=== PATIENT | female | born 1975 | race Caucasian/White ===

== ENCOUNTER → 2017-10-30 | Outpatient (CLI) | payer OTHER ==
[~2017-10-30] MED LIST: AUG875 PO; FISH OIL1 CAP PO; IBU800 PO; LORA-1105 PO; MULT1TAB64 PO; OLOOD OS
[2017-10-30 08:42] LABS: PLATELET COUNT, AUTOMATED 219 K/uL (150-450)
[2017-10-30 09:59] LABS: LDL CHOLESTEROL 118 mg/dl
== END ==
LOC: LAB 08:15
PROVIDERS: ATTEND Nurse Practitioner Psychiatric/Mental Health
DX: Z00.00 Encounter for general adult medical examination without abnormal findings (principal)
CPT/HCPCS: 36415; 82040; 82247; 82310; 82374; 82435; 82465; 82565; 82947; 83718; 84075; 84132; 84155; 84295; 84443; 84450; 84460; 84478; 84520; 85025

== ENCOUNTER 2018-01-22 18:37 | Emergency (ER) | payer OTHER ==
[2018-01-22] MEDS ORDERED: ESCI20TA38 PO (18:44)
--- NOTE | 2018-01-22 18:52 | ER Report ---
History and Physical Time Seen By MD: 18:52 Hx. of Stated Complaint: JAW OUT OF PLACE AFTER YAWNING, ABOUT 4:30 TONIGHT HPI/ROS CHIEF COMPLAINT: Jaw pain HISTORY OF PRESENT ILLNESS: This is a 42-year-old female who presents to the emergency department for left-sided jaw pain. Patient states that this evening while eating she developed some sudden left-sided jaw pain, the jaw and teeth were misaligned, she was unable to eat. Patient is able to open her mouth, does cause some discomfort to the left side of her mandible. No obvious deformities. Patient states this is happened in the past however she has been able to yawn and "it slides back into place on it's own". No recent fevers, aches, chills, nausea or vomiting. REVIEW OF SYSTEMS: Respiratory: No cough, no dyspnea. Cardiovascular: No chest pain, no palpitations. Gastrointestinal: No vomiting, no abdominal pain. Musculoskeletal: As above. Allergies: Coded Allergies: No Known Drug Allergies (Verified , 01/22/18) Home Meds Reported Medications Escitalopram Oxalate (LEXAPRO) 20 Mg Tablet, 10 MG PO QDAY, TAB 01/22/18 Multivitamin (MULTI VITAMIN DAILY) 1 Each Tablet, 1 EACH PO 11/25/12 Loratadine (CLARITIN (OR EQUIV)) 10 Mg Tab, 10 MG PO 11/25/12 Discontinued Reported Medications Amoxicillin/Clavulanate K (Augmentin) 875 Mg Tab, 875 MG PO BIDBS, #10 11/25/12 [place]-3 Fatty Acids (Fish Oil) 1 Cap Capsule, 1 CAP PO 11/25/12 Discontinued Scripts Olopatadine (PATANOL) 5 Ml Soln, 1 DROP OS Q6H for eye irritation, #1 BOTTLE 0 Refills Prov:LISHA DORAN MD 03/01/17 Past Medical/Surgical History The patient has a past medical and surgical history of asthma, hospitalization for childbirth and a Bite, left knee surgery. Reviewed Nurses Notes: Yes Hx Smoking: No Hx Substance Use Disorder: No Hx Alcohol Use: No Constitutional Vital Sign - Last 24 Hours 01/22/18 18:41 Temp 98.7 Pulse 87 Resp 14 B/P (MAP) 111/97 Pulse Ox 96 O2 Delivery Room Air Physical Exam General Appearance: The patient is alert, has no immediate need for airway protection and no current signs of toxicity. Eyes: Pupils equal and round no injection. Mandible: There is a palpable offset or misalignment to the left mandible. No crepitus. Mandible follow up: No misalignment on the reevaluation. No crepitus. Respiratory: Chest is non tender, lungs are clear to auscultation. Cardiac: regular rate and rhythm. Gastrointestinal: Abdomen is soft and non tender, no masses, bowel sounds normal. Musculoskeletal: Neck: Neck is supple and non tender. Extremities have full range of motion and are non tender. Skin: No rashes or lesions. DIFFERENTIAL DIAGNOSIS: After history and physical exam differential diagnosis was considered for mandibular dislocation. Medical Decision Making EKG/Imaging Imaging Location: [facility] Patient: Aparna Saez : 1975 Visit/Account:[id number] Date of Sevice: 01/22/2018 EXAMINATION: 5 views of the mandible HISTORY: Left-sided pain. Query dislocation. COMPARISON: None. FINDINGS: The mandible appears radiographically intact. No visualized mandibular fracture. Alignment at the temporomandibular joints appears to be symmetric and within normal limits. Remainder of the visualized facial bones appear radiographically intact. The paranasal sinuses are unopacified. IMPRESSION: Unremarkable mandible series. No visualized fracture or dislocation. If there is persistent clinical concern for acute osseous pathology , follow-up CT would be more sensitive for further evaluation. Report Dictated By: Dax Charles MD at 01/22/2018 7:56 PM Report E-Signed By: Dax Charles MD at 01/22/2018 7:58 PM WSN:[id number] ED Course/Re-evaluation ED Course The patient was admitted to room. History and physical were obtained. Differential diagnoses were considered. A mandible x-ray was obtained which was negative for any obvious dislocation or fracture. My physical exam did support some malalignment of the left mandible, I did review the results with the patient and we did decide that we proceed with a CT of the facial bones. I did order the CT however shortly after leaving the patient's room she did indicate that she felt like the mandible did reduce and would not require a CT at this time. I did tell the patient that since this is happened several times that I will refer her to [facility] for consultation. The patient had no questions or concerns at this time and was discharged home. Patient was instructed to take thousand milligrams of Tylenol every 8 hours as needed for discomfort, she can apply ice and heat as needed. Patient was in agreement with his primary care and discharged. Decision to Disposition Date: Jan 22, 2018 Decision to Disposition Time: 20:25 Depart Departure Latest Vital Signs Vital Signs Date Time Temp Pulse Resp B/P (MAP) Pulse Ox O2 Delivery O2 Flow Rate FiO2 01/22/18 18:41 98.7 87 14 111/97 96 Room Air Impression: Primary Impression: Jaw dislocation Condition: Improved Disposition: HOME OR SELF-CARE Referrals: MARCELO YONUG DDS, MD Patient Instructions: Mandibular Dislocation (ED) Additional Instructions: Drink plenty of water. Get plenty of rest. Take two 500 mg Tylenol every 8 hours as needed for pain. apply either ice or heat to the affected area. Follow-up with [facility] for reevaluation and consultation. Return to the emergency department for any other concerns or worsening symptoms. Problem Qualifiers Primary Impression: Jaw dislocation Encounter type: initial encounter Qualified Codes: S03.00XA - Dislocation of jaw, unspecified side, initial encounter SHAWNA POON QUALITY ASSURANCE TEST PROGRAM MANAGER-BC Jan 22, 2018 18:52
--- NOTE | 2018-01-22 20:01 | RADIOLOGY IMAGING REPORT ---
FACILITY: [facility] PATIENT NAME: Aparna Saez : 1975 MR: [id number] V: [id number] EXAM DATE: ORDERING PHYSICIAN: SHAWNA POON TECHNOLOGIST: Location: [facility] Patient: Aparna Saez : 1975 Visit/Account:[id number] Date of Sevice: 01/22/2018 EXAMINATION: 5 views of the mandible HISTORY: Left-sided pain. Query dislocation. COMPARISON: None. FINDINGS: The mandible appears radiographically intact. No visualized mandibular fracture. Alignment at the tem poromandibular joints appears to be symmetric and within normal limits. Remainder of the visualized facial bones appear radiographically intact. The paranasal sinuses are un opacified. IMPRESSION: Unremarkable mandible series. No visualized fracture or dislocation. If there is persist ent clinical concern for acute osseous pathology, follow-up CT would be more sensitive for further ev aluation. Report Dictated By: Dax Charles MD at 01/22/2018 7:56 PM Report E-Signed By: Dax Charles MD at 01/22/2018 7:58 PM [id number]
[2018-01-22 20:32] VITALS: BP 110/78
== END 2018-01-22 20:36 | disposition home or self-care (01) ==
LOC: ER 18:42
DX: S03.00XA Dislocation of jaw, unspecified side, initial encounter (principal)
CPT/HCPCS: 70100; 99283

== ENCOUNTER 2018-12-07 05:11 | Emergency (ER) | payer OTHER ==
[~2018-12-07 05:11] MED LIST changes: +ESCI20TA38 PO
[2018-12-07] MEDS ORDERED: NAPR220C12 PO (05:22)
--- NOTE | 2018-12-07 05:24 | ER Report ---
History and Physical Time Seen By MD: 05:24 Hx. of Stated Complaint: WOKE UP WITH "SEVERE ABDOMINAL PAIN" AROUND 0430. STATES SHE FELT FUNNY BEFORE GOING TO BED (SEAN BRADLEY MD) HPI/ROS CHIEF COMPLAINT: Abdominal pain HISTORY OF PRESENT ILLNESS: This is a 43-year-old female. She awoke this morning with severe abdominal pain. It was across her upper abdomen from the left to the right. Very severe, nothing would make it better and any movement would make it worse. She felt like she had some reflux earlier in the evening and took an acid transcribing operator head. She thought this might be related to her Naprosyn use, has been using Naprosyn for some chronic pain in her hips and tailbone area. Does have a history of stomach ulcer at age 15 due to stress at that time in her life but no problems since. No nausea or vomiting. Denies any changes with bowels including blood, melena, diarrhea or constipation. No increased gas. Denies any problems with urination recently as well. The pain is now completely gone. No fevers and chills associated with this. Denies any chest pain or shortness of breath. (SEAN BRADLEY MD) Allergies: Coded Allergies: diclofenac (Verified Allergy, Intermediate, 12/07/18) RASH Home Meds Active Scripts Ondansetron Hcl (ZOFRAN) 4 Mg Tablet, 4 MG PO Q8H for Nausea, #15 TAB 0 Refills Prov:LISHA DARBY MD 12/07/18 Dicyclomine Hcl (DICYCLOMINE HCL) 20 Mg Tablet, 20 MG PO QID, #30 TAB 0 Refills Prov:LISHA DARBY MD 12/07/18 Ondansetron Hcl (ZOFRAN) 4 Mg Tablet, 4 MG PO Q8H for Nausea, #15 TAB 0 Refills Prov:LISHA DARBY MD 12/07/18 Dicyclomine Hcl (DICYCLOMINE HCL) 20 Mg Tablet, 20 MG PO QID for abdominal pain, #30 TAB 0 Refills Prov:LISHA DARBY MD 12/07/18 Reported Medications Naproxen Sodium (ALEVE) 220 Mg Capsule, 440 MG PO TID, CAPSULE 12/07/18 Multivitamin (MULTI VITAMIN DAILY) 1 Each Tablet, 1 EACH PO 4/18/13 Loratadine (CLARITIN (OR EQUIV)) 10 Mg Tab, 10 MG PO 11/25/12 Discontinued Reported Medications Escitalopram Oxalate (LEXAPRO) 20 Mg Tablet, 10 MG PO QDAY, TAB 01/22/18 Reviewed Nurses Notes: Yes (SEAN BRADLEY MD) Hx Smoking: No Hx Substance Use Disorder: No Hx Alcohol Use: No (SEAN BRADLEY MD) Constitutional Vital Sign - Last 24 Hours 12/07/18 12/07/18 12/07/18 12/07/18 05:15 07:00 07:03 07:30 Temp 97.9 Pulse 88 ??? 84 Resp 16 B/P (MAP) 132/81 127/87 (100) Pulse Ox 94 91 92 O2 Delivery Room Air 12/07/18 12/07/18 08:00 08:08 Pulse 80 71 Pulse Ox 91 90 (LISHA DARBY MD) Physical Exam General Appearance: The patient is alert. No acute distress. Eyes: Pupils are equal, round. No pallor, injection or icterus. ENT: Mucous membranes are moist. Normal oral mucosa. Respiratory: Lungs are clear to auscultation. Cardiovascular: Regular rate and rhythm. No murmurs, gallops or rubs. Normal peripheral perfusion. Gastrointestinal: Abdomen is soft and non tender. Nondistended. No masses or organomegaly. Normal active bowel sounds. No costovertebral angle tenderness with percussion. Neurological: Alert and oriented x3. No focal neurologic deficit Skin: Warm and dry. No rashes. DIFFERENTIAL DIAGNOSIS: After history and physical exam, differential diagnosis was considered for epigastric pain including but not limited to biliary colic, cholecystitis, peptic ulcer disease, pancreatitis, and gastroenteritis. (SEAN BRADLEY MD) Medical Decision Making Data Points Result Diagram: 12/07/18 0521 12/07/18 0521 Laboratory Hematology Test 12/07/18 05:21 Red Blood Count 4.69 M/uL (4.17-5.56) Mean Corpuscular Volume 92.6 fL (80.0-96.0) Mean Corpuscular Hemoglobin 31.5 pg (26.0-33.0) Mean Corpuscular Hemoglobin Concent 34.0 g/dL (32.0-36.0) Red Cell Distribution Width 13.6 % (11.5-14.5) Mean Platelet Volume 9.0 fL (7.2-11.1) Neutrophils (%) (Auto) 59.8 % (39.4-72.5) Lymphocytes (%) (Auto) 22.6 % (17.6-49.6) Monocytes (%) (Auto) 8.5 % (4.1-12.4) Eosinophils (%) (Auto) 8.4 % (0.4-6.7) Basophils (%) (Auto) 0.7 % (0.3-1.4) Nucleated RBC Relative Count (auto) 0.0 /100WBC Neutrophils # (Auto) 3.8 K/uL (2.0-7.4) Lymphocytes # (Auto) 1.4 K/uL (1.3-3.6) Monocytes # (Auto) 0.5 K/uL (0.3-1.0) Eosinophils # (Auto) 0.5 K/uL (0.0-0.5) Basophils # (Auto) 0.0 K/uL (0.0-0.1) Nucleated RBC Absolute Count (auto) 0.00 K/uL Sodium Level 139 mmol/L (137-145) Potassium Level 3.9 mmol/L (3.5-5.0) Chloride Level 108 mmol/L (98-107) Carbon Dioxide Level 25 mmol/L (22-31) Blood Urea Nitrogen 15 mg/dl (7-18) Creatinine 0.90 mg/dl (0.52-1.04) Glomerular Filtration Rate Calc > 60.0 Random Glucose 90 mg/dl (75-110) Calcium Level 8.9 mg/dl (8.4-10.2) Total Bilirubin 0.4 mg/dl (0.2-1.3) Aspartate Amino Transf (AST/SGOT) 15 U/L (0-35) Alanine Aminotransferase (ALT/SGPT) 28 U/L (0-56) Alkaline Phosphatase 60 U/L (0-126) Total Protein 6.2 g/dl (6.3-8.2) Albumin 3.7 g/dl (3.5-5.0) Amylase Level 51 U/L (0-110) Lipase 56 U/L (23-300) Helicobacter pylori IgG Antibody Negative (NEGATIVE) Chemistry Test 12/07/18 05:21 White Blood Count 6.3 k/uL (4.5-11.0) Red Blood Count 4.69 M/uL (4.17-5.56) Hemoglobin 14.8 g/dL (12.0-16.0) Hematocrit 43.4 % (34.0-47.0) Mean Corpuscular Volume 92.6 fL (80.0-96.0) Mean Corpuscular Hemoglobin 31.5 pg (26.0-33.0) Mean Corpuscular Hemoglobin Concent 34.0 g/dL (32.0-36.0) Red Cell Distribution Width 13.6 % (11.5-14.5) Platelet Count 196 K/uL (150-450) Mean Platelet Volume 9.0 fL (7.2-11.1) Neutrophils (%) (Auto) 59.8 % (39.4-72.5) Lymphocytes (%) (Auto) 22.6 % (17.6-49.6) Monocytes (%) (Auto) 8.5 % (4.1-12.4) Eosinophils (%) (Auto) 8.4 % (0.4-6.7) Basophils (%) (Auto) 0.7 % (0.3-1.4) Nucleated RBC Relative Count (auto) 0.0 /100WBC Neutrophils # (Auto) 3.8 K/uL (2.0-7.4) Lymphocytes # (Auto) 1.4 K/uL (1.3-3.6) Monocytes # (Auto) 0.5 K/uL (0.3-1.0) Eosinophils # (Auto) 0.5 K/uL (0.0-0.5) Basophils # (Auto) 0.0 K/uL (0.0-0.1) Nucleated RBC Absolute Count (auto) 0.00 K/uL Glomerular Filtration Rate Calc > 60.0 Calcium Level 8.9 mg/dl (8.4-10.2) Total Bilirubin 0.4 mg/dl (0.2-1.3) Aspartate Amino Transf (AST/SGOT) 15 U/L (0-35) Alanine Aminotransferase (ALT/SGPT) 28 U/L (0-56) Alkaline Phosphatase 60 U/L (0-126) Total Protein 6.2 g/dl (6.3-8.2) Albumin 3.7 g/dl (3.5-5.0) Amylase Level 51 U/L (0-110) Lipase 56 U/L (23-300) Helicobacter pylori IgG Antibody Negative (NEGATIVE) (LISHA DARBY MD) EKG/Imaging Imaging Study: ACUTE ABDOMEN SERIES 3 VIEW Indication: Abdominal pain Comparison study: None available Findings: Upright chest and upright and supine views of the abdomen demonstrates no evidence of abnormality of the chest. There is no evidence of pneumoperito neum. The bowel gas pattern is unremarkable. There is no evidence of small bowel obstruction. The bony structures are unremarkable. IMPRESSION: Unremarkable exam Report Dictated By: Jesus Lord at 12/07/2018 6:22 AM (SEAN BRADLEY MD) Imaging FACILITY: [facility] PATIENT NAME: Aparna Saez : 1975 MR: [id number] V: [id number] EXAM DATE: [id number] ORDERING PHYSICIAN: SEAN BRADLEY TECHNOLOGIST: Location: [facility] Patient: Aparna Saez : 1975 Visit/Account:[id number] Date of Sevice: 12/07/2018 EXAMINATION: Ultrasound abdomen right upper quadrant HISTORY: Sudden onset right upper quadrant pain COMPARISON: None relevant FINDINGS: Gallbladder: No stones, wall thickening, pericholecystic fluid. Adkins's sign is positive in the right upper quadrant was tender with scanning. Liver: Negative. Common bile duct: 4-5 mm. Pancreas: Negative. Right kidney: Normal in size and echogenicity, measuring 10.2 cm in length. No hydronephrosis. Upper abdominal aorta and IVC: Negative. Ascites: None. IMPRESSION: Unremarkable right upper quadrant ultrasound. Positive sonographic Adkins's sign is of uncertain significance. Report Dictated By: Mario Connell MD at 12/07/2018 7:57 AM Report E-Signed By: Mario Connell MD at 12/07/2018 8:02 AM WSN:[id number] (LISHA DARBY MD) ED Course/Re-evaluation ED Course Patient currently without symptoms of pain, but because of severity was very worried. Initial labs are unremarkable. Abdominal 3-view negative. Discussed further that this could be biliary colic and will get an ultrasound. Ultrasound pending when turned over care to Dr. Darby at shift change. (SEAN BRADLEY MD) ED Course Assumed care of patient from Dr. Bradley at 7 AM this morning. Patient being worked up for biliary colic type symptoms. Awaiting results of ultrasound. Decision to Disposition Date: Dec 07, 2018 Decision to Disposition Time: 08:20 (LISHA DARBY MD) Depart Departure Latest Vital Signs Vital Signs Date Time Temp Pulse Resp B/P (MAP) Pulse Ox O2 Delivery O2 Flow Rate FiO2 12/07/18 08:08 71 90 12/07/18 07:03 127/87 (100) 12/07/18 05:15 97.9 16 Room Air (LISHA DARBY MD) Impression: Primary Impression: Biliary colic Condition: Improved Disposition: HOME OR SELF-CARE New Scripts Ondansetron Hcl (ZOFRAN) 4 Mg Tablet 4 MG PO Q8H for Nausea, #15 TAB 0 Refills Prov: LISHA DARBY MD 12/07/18 Dicyclomine Hcl (DICYCLOMINE HCL) 20 Mg Tablet 20 MG PO QID, #30 TAB 0 Refills Prov: LISHA DARBY MD 12/07/18 Ondansetron Hcl (ZOFRAN) 4 Mg Tablet 4 MG PO Q8H for Nausea, #15 TAB 0 Refills Prov: LISHA DARBY MD 12/07/18 Dicyclomine Hcl (DICYCLOMINE HCL) 20 Mg Tablet 20 MG PO QID for abdominal pain, #30 TAB 0 Refills Prov: LISHA DARBY MD 12/07/18 Patient Instructions: Biliary Colic (ED) SEAN BRADLEY MD Dec 07, 2018 05:24 LISHA DARBY MD Dec 07, 2018 08:21
[2018-12-07] MEDS ORDERED: NS(*) 0.9% 1000 ML BAG 1,000 ML IV ONE (05:32)
[2018-12-07] MEDS ORDERED: PANTOPRAZOLE SOD 40 MG IV VIAL IVP ONE (05:35)
[2018-12-07 05:41] LABS: PLATELET COUNT, AUTOMATED 196 K/uL (150-450)
--- NOTE | 2018-12-07 06:28 | RADIOLOGY IMAGING REPORT ---
FACILITY: [facility] [place] PATIENT NAME: Aparna Saez : 1975 MR: [id number] V: [id number] EXAM DATE: ORDERING PHYSICIAN: SEAN BRADLEY TECHNOLOGIST: Location: [facility] [place] Patient: Aparna Saez : 1975 Visit/Account:[id number] Date of Sevice: 12/07/2018 Study: ACUTE ABDOMEN SERIES 3 VIEW Indication: Abdominal pain Comparison study: None available Findings: Upright chest and upright and supine views of the abdomen demonstrates no evidence of abnor mality of the chest. There is no evidence of pneumoperitoneum. The bowel gas pattern is unremarkable. There is no evidence of small bowel obstruction. The bony structures are unremarkable. IMPRESSION: Unremarkable exam Report Dictated By: Jesus Lord at 12/07/2018 6:22 AM Report E-Signed By: Jesus Lord at 12/07/2018 6:23 AM WSN:[id number]
[2018-12-07 07:03] VITALS: BP 127/87
--- NOTE | 2018-12-07 08:07 | RADIOLOGY IMAGING REPORT ---
FACILITY: [facility] PATIENT NAME: Aparna Saez : 1975 MR: [id number] V: [id number] EXAM DATE: ORDERING PHYSICIAN: SEAN BRADLEY TECHNOLOGIST: Location: [facility] Patient: Aparna Saez : 1975 Visit/Account:[id number] Date of Sevice: 12/07/2018 EXAMINATION: Ultrasound abdomen right upper quadrant HISTORY: Sudden onset right upper quadrant pain COMPARISON: None relevant FINDINGS: Gallbladder: No stones, wall thickening, pericholecystic fluid. Adkins's sign is positive in the rig ht upper quadrant was tender with scanning. Liver: Negative. Common bile duct: 4-5 mm. Pancreas: Negative. Right kidney: Normal in size and echogenicity, measuring 10.2 cm in length. No hydronephrosis. Upper abdominal aorta and IVC: Negative. Ascites: None. IMPRESSION: Unremarkable right upper quadrant ultrasound. Positive sonographic Adkins's sign is of u ncertain significance. Report Dictated By: Mario Connell MD at 12/07/2018 7:57 AM Report E-Signed By: Mario Connell MD at 12/07/2018 8:02 AM WSN:[id number]
[2018-12-07] MEDS ORDERED: ONDA4TAB97 PO ×2 (08:20→08:33)
[2018-12-07] MEDS ORDERED: DICY20TA70 PO ×2 (08:20→08:33)
== END 2018-12-07 08:34 | disposition home or self-care (01) ==
LOC: ER 05:16
DX: K80.50 Calculus of bile duct without cholangitis or cholecystitis without obstruction (principal)
CPT/HCPCS: 74022; 76705; 82150; 83690; 85025; 86677; 96361; 96374; 99284; C9113; J7030; 82040; 82247; 82310; 82374; 82435; 82565; 82947; 84075; 84132; 84155; 84295; 84450; 84460; 84520

== ENCOUNTER → 2019-01-10 | Outpatient (CLI) | payer OTHER ==
[~2019-01-10] MED LIST changes: +DICY20TA70 PO; +NAPR220C12 PO; +ONDA4TAB97 PO; +PANT40TA65 PO
--- NOTE | 2019-01-10 15:38 | RADIOLOGY IMAGING REPORT ---
FACILITY: [facility] [place] PATIENT NAME: Aparna Saez : 1975 MR: [id number] V: [id number] EXAM DATE: ORDERING PHYSICIAN: TITO ESQUIVEL TECHNOLOGIST: [place] [facility] [place] Patient: Aparna Saez : 1975 Visit/Account:[id number] Date of Sevice: 01/10/2019 MR KNEE LT W/O CONTRAST DATE: 01/10/2019 2:00 PM TECHNIQUE: Multisequence, multiplanar MR imaging was performed of the left knee without intravenous c ontrast INDICATION: Possible medial meniscal tear versus pes anserine bursitis. COMPARISON: Left knee MRI May 09, 2009 FINDINGS: MENISCI: There is a complex tear of the medial meniscal body. The meniscal body appears diminutive an d is partially extruded from the joint space. CRUCIATES AND COLLATERALS: The ACL and PCL are intact. The MCL is intact but with mild surrounding ed rosy. Normal lateral collateral ligament complex. ARTICULAR CARTILAGE AND OSSEOUS STRUCTURES: No fracture. There is moderate tibial plateau edema deep to the deficient medial meniscus. Medial Compartment: Scattered cartilage loss on the weightbearing articular surfaces adjacent to the deficient meniscus. Lateral Compartment: No focal cartilage defect. Patellofemoral Compartment: Scattered cartilage loss on the patella most notably on the superior pole . Mild subchondral edema. EXTENSOR MECHANISM: The quadriceps and patellar tendons are intact as are the patellar retinacula. MISCELLANEOUS: No effusion. IMPRESSION: 1. Complex tear of the medial meniscal body with associated cartilage loss in the medial compartment and moderate tibial plateau edema. 2. Moderate degenerative findings in the patellofemoral compartment. Report Dictated By: Julian Stratton MD at 01/10/2019 3:29 PM Report E-Signed By: Julian Stratton MD at 01/10/2019 3:34 PM WSN:[id number]
== END ==
LOC: MRI 07:08
PROVIDERS: ATTEND Orthopaedic Surgery Pediatric Orthopaedic Surgery
DX: M17.12 Unilateral primary osteoarthritis, left knee (principal); S83.242A Other tear of medial meniscus, current injury, left knee, initial encounter